=== PATIENT | female | born 1995 | race American Indian/Alaskan Native ===

== ENCOUNTER 2017-03-28 22:20 | Emergency (ER) | payer SELFPAY ==
[2017-03-28 22:57] VITALS: BP 146/98
--- NOTE | 2017-03-29 00:27 | Emergency Department Report ---
HPI - General Chief Complaint: Skin/Abscess/Foreign Body Time Seen by Provider: 03/29/17 00:12 - HPI HPI: She is a 21-year-old female presents to ED complaining of redness and pain on her right breast 1 week. Patient suspected navicular she noticed some redness on the right side of her right breast. Patient denies any drainage. She denies any fever/chills/nausea/vomiting/new discharge/breast pain or lump. ED Past Medical Hx - Past Medical History Previous Medical History?: No - Surgical History Past Surgical History?: No - Social History Smoking Status: Current Every Day Smoker Substance Use Type: None - Medications Home Medications: Home Medications Medication Instructions Recorded Confirmed Last Taken Type Cephalexin [Keflex] 500 mg PO TID #21 capsule 09/06/13 Unknown Rx Ibuprofen [Motrin] 600 mg PO Q8H PRN #20 tablet 09/06/13 Unknown Rx Ibuprofen [Motrin 800 MG tab] 800 mg PO TID #30 tablet 03/29/17 Unknown Rx Sulfamethoxazole/Trimethoprim 1 each PO BID #14 tablet 03/29/17 Unknown Rx [Bactrim DS TAB] ED Review of Systems ROS: Stated complaint: POSS BOIL RT BREAST Other details as noted in HPI Constitutional: denies: chills, fever Eyes: denies: eye pain, eye discharge, vision change ENT: denies: ear pain, throat pain Respiratory: denies: cough, shortness of breath, wheezing Cardiovascular: denies: chest pain, palpitations Endocrine: no symptoms reported Gastrointestinal: denies: abdominal pain, nausea, diarrhea Genitourinary: denies: urgency, dysuria, frequency, hematuria, discharge Musculoskeletal: denies: back pain, joint swelling, arthralgia Skin: denies: rash, lesions Neurological: denies: headache, weakness, paresthesias Psychiatric: denies: anxiety, depression Hematological/Lymphatic: denies: easy bleeding, easy bruising Physical Exam - Physical Exam Vital Signs: Vital Signs 03/28/17 22:51 Temperature 98.3 F Pulse Rate 86 Respiratory 20 Rate Blood Pressure 146/98 O2 Sat by Pulse 100 Oximetry Physical Exam: GENERAL: Alert and oriented x3, no apparent distress, Normal Gait, atraumatic. HEAD: Head is normocephalic and a-traumatic. NECK: Supple. Non edematous, No carotid bruits. No lymphadenopathy or thyromegaly. No C-spine tenderness LUNGS: Symetrical with respiration, No wheezing, no rales or crackles, CTAB. HEART: S1, S2 present, regular rate and rhythm without murmur, no rubs, no gallops. BREAST: Symetrical, Supple bilaterally, No Masses, lumps, right breast erythema surrounding insect bite at 9:00 mildly tender to palpation, soft. Insect bite sahara surrounded by PSYCHIATRIC: Mood is congruent with affect, denies suicidal or homicidal ideations. SKIN: Warm and dry, No lesions, No ulceration or induration present. ED Course Vital Signs 03/28/17 22:51 Temperature 98.3 F Pulse Rate 86 Respiratory 20 Rate Blood Pressure 146/98 O2 Sat by Pulse 100 Oximetry ED Medical Decision Making - Medical Decision Making 21-year-old female presents with a right breast cellulitis ED course: Patient received Bactrim and Motrin in the ED Discussed the patient put he 3 times a day. Discussed premature as needed. Discussed antibiotics and pain medications for home Patient is alert and oriented 3 she is in no distress. Discussed follow-up with primary care physician in 3-5 days Critical care attestation.: If time is entered above; I have spent that time in minutes in the direct care of this critically ill patient, excluding procedure time. ED Disposition Clinical Impression: Insect bite Qualifiers: Encounter type: initial encounter Qualified Code(s): W57.XXXA - Bitten or stung by nonvenomous insect and other nonvenomous arthropods, initial encounter Disposition: DISCHARGED TO HOME OR SELFCARE Is pt being admited?: No Does the pt Need Aspirin: No Condition: Stable Instructions: Insect Bite or Sting (ED), Heat Pack Application (ED) Prescriptions: Ibuprofen [Motrin 800 MG tab] 800 mg PO TID #30 tablet Sulfamethoxazole/Trimethoprim [Bactrim DS TAB] 1 each PO BID #14 tablet Referrals: PRIMARY CARE, [Primary Care Provider] - 3-5 Days [facility] [Outside] - 3-5 Days Forms: Accompanied Note, Work/School Release Form(ED) Time of Disposition: 00:36
[2017-03-29] MEDS ORDERED: BACTRIM DS PO ONE (00:32)
[2017-03-29] MEDS ORDERED: MOTRIN PO ONE (00:32)
== END 2017-03-29 01:08 | disposition home or self-care (01) ==
LOC: ED 22:20
DX: S20.161A Insect bite (nonvenomous) of breast, right breast, initial encounter (principal); F17.200 Nicotine dependence, unspecified, uncomplicated; W57.XXXA Bitten or stung by nonvenomous insect and other nonvenomous arthropods, initial encounter; Y93.89 Activity, other specified; Y99.8 Other external cause status; Y92.89 Other specified places as the place of occurrence of the external cause
CPT/HCPCS: 99282

== ENCOUNTER 2017-11-27 22:13 | Emergency (ER) | payer SELFPAY | END 2017-11-28 08:04 | disposition left against medical advice (07) | LOC: ED 22:13 | DX: J11.1 Influenza due to unidentified influenza virus with other respiratory manifestations (principal); Z53.21 Procedure and treatment not carried out due to patient leaving prior to being seen by health care provider ==

== ENCOUNTER 2019-09-25 21:03 | Emergency (ER) | payer OTHER ==
--- NOTE | 2019-09-25 21:57 | Event Note ---
ED Screening Note Date of service: 09/25/19 ED Screening Note: This initial assessment/diagnostic orders/clinical plan/treatment(s) is/are subject to change based on patients health status, clinical progression and re- assessment by fellow clinical providers in the ED. Further treatment and workup at subsequent clinical providers discretion. Patient/guardian urged not to elope from the ED as their condition may be serious if not clinically assessed and managed. Initial orders include: 24yo BF states that she has a cough that has become worse over 2 weeks. She states that she has chills and CP also.
[2019-09-26] MEDS ORDERED: ALBUTEROL 2.5 MG/3 ML NEBU IH ONE ×2 (00:46→00:48)
[2019-09-26] MEDS ORDERED: ACETAMINOPHEN 325 MG TAB PO ONE (00:46)
[2019-09-26] MEDS ORDERED: SODIUM CHLORIDE 0.9% 1000 ML 2,000 ML IV ONE (00:46)
[2019-09-26] MEDS ORDERED: KETOROLAC 30 MG/1 ML INJ IV ONE (00:46)
--- NOTE | 2019-09-26 00:48 | Emergency Department Report ---
ED General Adult HPI - General Chief complaint: Fever Stated complaint: CHILLS COUGH FABIENNE Time Seen by Provider: 09/26/19 00:13 Source: patient, family, RN notes reviewed Mode of arrival: Ambulatory Limitations: No Limitations - History of Present Illness Initial comments: This is a 24-year-old female. This patient is not known to this provider previously. Her past medical history includes tobacco consumption and morbid obesity. The patient states that she is not . The patient presents to the ER with a complaint of fever, cough, chest wall pain, and pleuritic pain, present for a few weeks, worse over the past 36-48 hours. Chest wall pain central, does not radiate to the back, arms or neck. Also admits to Dry mucous production. There is no complaint of headache, neck pain, abdominal pain, urinary symptoms. She is also describing mild muscle aches. No exacerbating or relieving factors that she is aware of. Not sure she's had any sick contacts. -: Gradual, days(s), week(s) Location: chest Consistency: constant Improves with: other Worsens with: other - Related Data Previous Rx's Medication Instructions Recorded Last Taken Type Cephalexin [Keflex] 500 mg PO TID #21 capsule 09/06/13 Unknown Rx Ibuprofen [Motrin] 600 mg PO Q8H PRN #20 tablet 09/06/13 Unknown Rx Ibuprofen [Motrin 800 MG tab] 800 mg PO TID #30 tablet 03/29/17 Unknown Rx Sulfamethoxazole/Trimethoprim 1 each PO BID #14 tablet 03/29/17 Unknown Rx [Bactrim DS TAB] Acetaminophen [Non-Aspirin Extra 500 mg PO Q6HR PRN #30 tablet 09/26/19 Unknown Rx Strength] Albuterol Sulfate [Proair 90 mcg IH Q4HR PRN #2 [email or web address] 09/26/19 Unknown Rx Respiclick] Benzonatate [Tessalon Perles] 100 mg PO Q8HR PRN #30 capsule 09/26/19 Unknown Rx Fluticasone [Flonase] 1 spray NS QDAY #1 bottle 09/26/19 Unknown Rx Ibuprofen [Motrin] 600 mg PO Q8H PRN #30 tablet 09/26/19 Unknown Rx Allergies Allergy/AdvReac Type Severity Reaction Status Date / Time Penicillins Allergy Hives Verified 03/28/17 22:51 tomato Allergy Hives Verified 03/28/17 22:51 ED Review of Systems ROS: Stated complaint: CHILLS COUGH FABIENNE Other details as noted in HPI Constitutional: fever, malaise, weakness ENT: congestion Respiratory: cough, shortness of breath Cardiovascular: chest pain Gastrointestinal: denies: vomiting Genitourinary: denies: dysuria Musculoskeletal: myalgia Skin: denies: lesions Neurological: weakness ED Past Medical Hx - Past Medical History Previous Medical History?: Yes Additional medical history: Bronchitis, Obesity - Surgical History Past Surgical History?: No - Social History Smoking Status: Current Every Day Smoker - Medications Home Medications: Home Medications Medication Instructions Recorded Confirmed Last Taken Type Cephalexin [Keflex] 500 mg PO TID #21 capsule 09/06/13 Unknown Rx Ibuprofen [Motrin] 600 mg PO Q8H PRN #20 tablet 09/06/13 Unknown Rx Ibuprofen [Motrin 800 MG tab] 800 mg PO TID #30 tablet 03/29/17 Unknown Rx Sulfamethoxazole/Trimethoprim 1 each PO BID #14 tablet 03/29/17 Unknown Rx [Bactrim DS TAB] Acetaminophen [Non-Aspirin Extra 500 mg PO Q6HR PRN #30 tablet 09/26/19 Unknown Rx Strength] Albuterol Sulfate [Proair 90 mcg IH Q4HR PRN #2 [email or web address] 09/26/19 Unknown Rx Respiclick] Benzonatate [Tessalon Perles] 100 mg PO Q8HR PRN #30 capsule 09/26/19 Unknown Rx Fluticasone [Flonase] 1 spray NS QDAY #1 bottle 09/26/19 Unknown Rx Ibuprofen [Motrin] 600 mg PO Q8H PRN #30 tablet 09/26/19 Unknown Rx ED Physical Exam - General Limitations: No Limitations General appearance: alert, obese - Head Head exam: Present: atraumatic, normocephalic - Eye Eye exam: Present: normal appearance, EOMI. Absent: nystagmus - ENT ENT exam: Present: normal exam, normal orophraynx, mucous membranes moist, normal external ear exam - Neck Neck exam: Present: normal inspection, full ROM. Absent: tenderness, meningismus - Respiratory Respiratory exam: Present: chest wall tenderness, decreased breath sounds. Absent: respiratory distress, wheezes, rales, rhonchi, stridor - Cardiovascular Cardiovascular Exam: Present: normal rhythm, tachycardia, normal heart sounds. Absent: systolic murmur, diastolic murmur, rubs, gallop - GI/Abdominal GI/Abdominal exam: Present: soft. Absent: distended, tenderness, guarding, rebound, rigid, pulsatile mass - Extremities Exam Extremities exam: Present: normal inspection, full ROM, other (2+ pulses noted in the bilateral upper, lower extremities. There is no long bone tenderness. Musculoskeletal compartments are soft. The pelvis is stable.). Absent: pedal edema, calf tenderness - Back Exam Back exam: Present: normal inspection, full ROM. Absent: tenderness, CVA tenderness (R), CVA tenderness (L), paraspinal tenderness, vertebral tenderness - Neurological Exam Neurological exam: Present: alert, other (there is no facial droop. The tongue is midline. Extraocular movements are intact bilaterally. Patient speaking in full complete sentences. Shoulder shrug is intact bilaterally. Hearing is grossly intact bilaterally. Visual acuity intact to finger counting and color perception at a close distance. 5/5 strength 4 extremities. Sensation intact to light touch in 4 extremities.) - Psychiatric Psychiatric exam: Present: flat affect - Skin Skin exam: Present: warm, dry, intact, normal color. Absent: rash ED Course Vital Signs 09/25/19 09/26/19 09/26/19 21:22 01:00 01:01 Temperature 101.1 F H Pulse Rate 108 H Pulse Rate [ Bilateral Throughout] Respiratory 16 18 18 Rate Respiratory Rate [Bilateral Throughout] Blood Pressure 137/91 Blood Pressure [Left] O2 Sat by Pulse 95 Oximetry 09/26/19 09/26/19 01:02 03:10 Temperature 99.0 F Pulse Rate 103 H Pulse Rate [ 101 H Bilateral Throughout] Respiratory 20 Rate Respiratory 18 Rate [Bilateral Throughout] Blood Pressure Blood Pressure 103/54 [Left] O2 Sat by Pulse 94 Oximetry - Reevaluation(s) Reevaluation #1: 09/26/19 01:50 Differential diagnosis, including but not limited to: Bronchitis, pneumonia, costochondritis, pericarditis, myocarditis, pulmonary embolism, acute coronary syndrome Assessment and plan: 24-year-old female with what appears to be clinically a viral syndrome. Chest wall pain is reproducible, and upon entering her room, she appears to be quite comfortable. Her EKG shows a sinus tachycardia, but is not suggestive of pericarditis, or myocarditis. She is low risk by well's criteria. We will give her fluids, pain medication, albuterol, antipyretic therapy, and obtain appropriate screening laboratory studies. This is very unlikely to be acute coronary syndrome based off of the history and physical. Furthermore, given that symptoms have been present for greater than 8 hours, as per the [employer] clinical policy, myocardial infarction ruled out with one set of cardiac enzymes. We will reassess once the patient's data points have resulted. Reevaluation #2: 09/26/19 03:20 Patient feels improved. X-ray the chest unremarkable. Objective laboratory testing unremarkable. Minimally tachycardic at this time, likely secondary to albuterol. This is likely viral syndrome/bronchitis at this time. Patient suitable for discharge at this point in time. She'll be counseled to discontinue tobacco consumption. ED Medical Decision Making - Lab Data Result diagrams: 09/26/19 01:01 09/26/19 01:01 Vital Signs 09/25/19 09/26/19 09/26/19 21:22 01:00 01:01 Temperature 101.1 F H Pulse Rate 108 H Pulse Rate [ Bilateral Throughout] Respiratory 16 18 18 Rate Respiratory Rate [Bilateral Throughout] Blood Pressure 137/91 O2 Sat by Pulse 95 Oximetry 09/26/19 01:02 Temperature Pulse Rate Pulse Rate [ 101 H Bilateral Throughout] Respiratory Rate Respiratory 18 Rate [Bilateral Throughout] Blood Pressure O2 Sat by Pulse Oximetry Lab Results 09/26/19 Range/Units 01:01 WBC 5.6 (4.5-11.0) K/mm3 RBC 4.16 (3.65-5.03) M/mm3 Hgb 13.2 (10.1-14.3) gm/dl Hct 38.8 (30.3-42.9) % MCV 93 (79-97) fl MCH 32 (28-32) pg MCHC 34 (30-34) % RDW 12.5 L (13.2-15.2) % Plt Count 231 (140-440) K/mm3 - EKG Data -: EKG Interpreted by Tx EKG shows normal: sinus rhythm Rate: tachycardia - EKG Data 09/26/19 01:52 The EKG today shows a sinus tachycardia, 105 bpm, there is a normal axis, the QTC is 410 ms, there is motion artifact, poor R wave progression, the EKG is abnormal, however, it is not consistent with a STEMI. - Radiology Data Radiology results: pending, report reviewed, image reviewed X-ray the chest is negative for acute disease Vital Signs 09/25/19 09/26/19 09/26/19 21:22 01:00 01:01 Temperature 101.1 F H Pulse Rate 108 H Pulse Rate [ Bilateral Throughout] Respiratory 16 18 18 Rate Respiratory Rate [Bilateral Throughout] Blood Pressure 137/91 Blood Pressure [Left] O2 Sat by Pulse 95 Oximetry 09/26/19 09/26/19 01:02 03:10 Temperature 99.0 F Pulse Rate 103 H Pulse Rate [ 101 H Bilateral Throughout] Respiratory 20 Rate Respiratory 18 Rate [Bilateral Throughout] Blood Pressure Blood Pressure 103/54 [Left] O2 Sat by Pulse 94 Oximetry Lab Results 09/26/19 09/26/19 09/26/19 Range/Units 01:01 01:01 01:01 WBC 5.6 (4.5-11.0) K/mm3 RBC 4.16 (3.65-5.03) M/mm3 Hgb 13.2 (10.1-14.3) gm/dl Hct 38.8 (30.3-42.9) % MCV 93 (79-97) fl MCH 32 (28-32) pg MCHC 34 (30-34) % RDW 12.5 L (13.2-15.2) % Plt Count 231 (140-440) K/mm3 D-Dimer 135.00 (0-234) ng/mlDDU Sodium 136 L (137-145) mmol/L Potassium 4.2 (3.6-5.0) mmol/L Chloride 99.6 (98-107) mmol/L Carbon Dioxide 22 (22-30) mmol/L Anion Gap 19 mmol/L BUN 10 (7-17) mg/dL Creatinine 0.9 (0.7-1.2) mg/dL Estimated GFR > 60 ml/min BUN/Creatinine Ratio 11 % Glucose 114 H (65-100) mg/dL Calcium 8.8 (8.4-10.2) mg/dL Total Creatine Kinase 193 H (30-135) units/L Troponin T < 0.010 (0.00-0.029) ng/mL HCG, Quant (0-4) mIU/mL 09/26/19 Range/Units 01:01 WBC (4.5-11.0) K/mm3 RBC (3.65-5.03) M/mm3 Hgb (10.1-14.3) gm/dl Hct (30.3-42.9) % MCV (79-97) fl MCH (28-32) pg MCHC (30-34) % RDW (13.2-15.2) % Plt Count (140-440) K/mm3 D-Dimer (0-234) ng/mlDDU Sodium (137-145) mmol/L Potassium (3.6-5.0) mmol/L Chloride (98-107) mmol/L Carbon Dioxide (22-30) mmol/L Anion Gap mmol/L BUN (7-17) mg/dL Creatinine (0.7-1.2) mg/dL Estimated GFR ml/min BUN/Creatinine Ratio % Glucose (65-100) mg/dL Calcium (8.4-10.2) mg/dL Total Creatine Kinase (30-135) units/L Troponin T (0.00-0.029) ng/mL HCG, Quant < 2 (0-4) mIU/mL Critical care attestation.: If time is entered above; I have spent that time in minutes in the direct care of this critically ill patient, excluding procedure time. ED Disposition Clinical Impression: Bronchitis Disposition: DC-01 TO HOME OR SELFCARE Is pt being admited?: No Does the pt Need Aspirin: No Condition: Stable Instructions: Acute Bronchitis (ED) Additional Instructions: Recommend that patient stopped smoking cigarettes. Patient likely has viral syndrome and/or bronchitis. Symptoms may last for a few days to a few weeks. Take the pain medication as needed, breathing medication as needed, cough medicine as needed and directed. Recommend follow-up with an outpatient primary care doctor within the next month. Recommend weight loss, physical activities as tolerated, modification of diet to include plenty of fiber, vegetables and lean protein. Participate in physical activities as tolerated. Return to the emergency room right away with new, worsened or different symptoms, or symptoms not present on the initial emergency room evaluation. Referrals: LAURA AVENDANO MD [Primary Care Provider] - 3-5 Days [facility] [Provider Group] - 3-5 Days [facility] [Provider Group] - 3-5 Days
[2019-09-26 01:36] LABS: Hematocrit 38.8 % (30.3-42.9); Hemoglobin 13.2 gm/dl (10.1-14.3); Mean Corpuscular HGB Conc 34 % (30-34); Mean Corpuscular Volume 93 fl (79-97); Platelet Count 231 K/mm3 (140-440); Red Blood Count 4.16 M/mm3 (3.65-5.03); Red Cell Distribution Width 12.5 % (13.2-15.2)
[2019-09-26 02:00] LABS: BUN/Creatinine Ratio 11; Blood Urea Nitrogen 10 mg/dL (7-17); Calcium 8.8 mg/dL (8.4-10.2); Hemolysis Index 9
--- NOTE | 2019-09-26 02:43 | XRay Report ---
CHEST 2 VIEWS INDICATION / CLINICAL INFORMATION: Chest pain COMPARISON: None available. FINDINGS: SUPPORT DEVICES: None. HEART / MEDIASTINUM: No significant abnormality. LUNGS / PLEURA: No significant pulmonary or pleural abnormality. No pneumothorax. ADDITIONAL FINDINGS: No significant additional findings. IMPRESSION: 1. No acute findings. Signer Name: Chidi Mcfadden MD Signed: 09/26/2019 2:39 AM Workstation Name: [employer]
[2019-09-26 03:13] VITALS: BP 103/54
== END 2019-09-26 03:40 | disposition home or self-care (01) ==
LOC: ED 21:03
DX: J40 Bronchitis, not specified as acute or chronic (principal); F17.200 Nicotine dependence, unspecified, uncomplicated; Z79.899 Other long term (current) drug therapy; Z91.018 Allergy to other foods; Z88.1 Allergy status to other antibiotic agents
CPT/HCPCS: 36415; 71046; 80048; 82550; 84484; 84702; 85027; 85379; 93005; 93010; 94640; 96374; 99284; J1885; J7030; 94644